=== PATIENT | female | born 1980 | race African-American/Black ===

== ENCOUNTER 2021-09-07 16:59 | Inpatient (IN) | payer MEDICAID, SELFPAY ==
[~2021-09-07 16:59] MED LIST: Iopamidol 300 61% 100 ML VIAL FS ONE; Iopamidol 300 61% 50 ML VIAL FS ONE
[2021-09-07] MEDS ORDERED: Heparin 5,000 UNITS/ML VIAL ONE (17:19)
[2021-09-07] MEDS ORDERED: Midazolam HCl 5 mg/5 ml Vial ONE (17:30)
[2021-09-07] MEDS ORDERED: Fentanyl 100 MCG/2 ML VIAL ONE (17:31)
[2021-09-07 17:33] LABS: Hemoglobin 13.4 g/dL (12.0-15.5); Mean Corpuscular HGB CONC 33.3 g/dL (32.0-36.0); Mean Corpuscular Hemoglobin 29.6 pg (27.0-33.0); Mean Corpuscular Volume 88.9 fl (81.6-98.3); Platelet Count 357 10x3/uL (150-450); RBC Distribution Width 12.9 % (11.5-14.5); Red Blood Cell (RBC) Count 4.52 10x6/uL (3.90-5.03); White Blood Cell (WBC) Count 7.3 10x3/uL (3.5-10.5)
[2021-09-07 17:58] LABS: ALT (SGPT) Less than 6 U/L (8-55); AST (SGOT) 11 U/L (5-34); Albumin 3.8 g/dL (3.5-5.0); Alkaline Phosphatase 57 U/L (40-110); Anion Gap 20 mmol/L (10-20); BUN (Urea Nitrogen) 12 mg/dL (7.0-18.7); Bilirubin, Total 0.4 mg/dL (0.2-1.2); Calc. Creatinine Clearance 0 mL/min (70-130); Carbon Dioxide 21 mmol/L (22-29); Chloride 101 mmol/L (98-107); Globulin 2.9 g/dL (2.4-3.5); Glucose 166 mg/dL (70-105); Magnesium 1.7 mg/dL (1.6-2.6); Protein, Total 6.7 g/dL (6.0-8.3); Sodium 139 mmol/L (136-145)
[2021-09-07] MEDS ORDERED: Aspirin Chewable 81 MG TAB ONE (18:00)
[2021-09-07] MEDS ORDERED: DOPamine/D5W 400 mg/250 ml PREMIX ONE (18:00)
[2021-09-07 18:02] LABS: Acetaminophen Less than 10.0 mcg/mL (10.0-30.0); Alcohol Less than 10 mg/dL (Less than 10); Salicylate Less than 8.0 mg/dL (15.0-30.0)
[2021-09-07] MEDS ORDERED: Ondansetron PF 4 MG/2 ML Vial ONE (18:04)
[2021-09-07 18:07] LABS: Potassium 2.7 mmol/L (3.5-5.1)
[2021-09-07] MEDS ORDERED: Potassium Chloride 20 MEQ in Premix Bag 1 BAG IVPB SCH (18:15)
[2021-09-07 18:17] LABS: Band 1 % (5-11); Eosinophils 5 % (0-10); Lymphocytes 47 % (21-51); Monocytes 4 % (0-10); Reactive Lymphocytes 5 % (0-10)
[2021-09-07 18:18] LABS: MDiff Complete? YES; Neutrophil 38 % (42-75); Platelet Morphology Comment Appears Adequate; RBC Morphology Normal
[2021-09-07] MEDS ORDERED: Morphine 4 MG/ML VIAL ONE (18:19)
[2021-09-07 18:21] LABS: CKMB 0.6 ng/mL (0-6.6)
[2021-09-07] MEDS ORDERED: Nitroglycerin 0.4 MG TAB (25 Tab Bottle) SL PRN (18:58)
[2021-09-07] MEDS ORDERED: Enalaprilat Dihydrate 1.25 MG/ML VIAL SLOW IVP SCH (20:00)
[2021-09-07] MEDS ORDERED: Metoprolol Tartrate 5 MG/5 ML VIAL IVP SCH (20:00)
[2021-09-07] MEDS: Morphine 2 MG/ML VIAL SLOW IVP PRN ×2 (20:04→23:23)
[2021-09-07 21:37] LABS: Prothrombin Time 10.9 sec (9.5-12.1)
[2021-09-07] MEDS ORDERED: Electrolyte Replacement Protocol FS PRN (21:40)
[2021-09-07 21:44] LABS: Troponin I 26.599 ng/mL (< 0.028)
[2021-09-07] MEDS: Metoprolol Tartrate 25 MG TAB PO SCH ×2 (21:46→21:50)
[2021-09-07] MEDS: Atorvastatin Calcium 40 MG TAB PO SCH (21:46)
[2021-09-07] MEDS ORDERED: Magnesium 2 GM/50 ML(in water) 2 GM in Premix Bag 1 BAG IVPB SCH (22:00)
[2021-09-07 22:12] VITALS: TEMP 98.1
[2021-09-07] MEDS ORDERED: Carvedilol 6.25 MG TAB PO SCH (22:15)
[2021-09-07 22:26] LABS: Anion Gap 15 mmol/L (10-20); BUN (Urea Nitrogen) 10 mg/dL (7.0-18.7); Calc. Creatinine Clearance 84 mL/min (70-130); Calcium 8.4 mg/dL (7.8-10.44); Carbon Dioxide 23 mmol/L (22-29); Chloride 104 mmol/L (98-107); Glucose 88 mg/dL (70-105); Potassium 3.6 mmol/L (3.5-5.1); Sodium 138 mmol/L (136-145)
[2021-09-07] MEDS: Potassium Chloride 20 MEQ TAB PO SCH (22:30)
[2021-09-08 00:51] LABS: Troponin I 319.074 ng/mL (< 0.028)
[2021-09-08] MEDS: Labetalol HCl 100 MG/20 ML VIAL SLOW IVP PRN ×3 (01:33→10:51)
[2021-09-08] MEDS: Potassium Chloride 20 MEQ TAB PO SCH ×2 (02:54→08:47)
[2021-09-08 03:49] LABS: Hemoglobin 13.1 g/dL (12.0-15.5); Mean Corpuscular HGB CONC 33.7 g/dL (32.0-36.0); Mean Corpuscular Hemoglobin 29.6 pg (27.0-33.0); Mean Platelet Volume 10.2 fl (7.4-10.4); Platelet Count 283 10x3/uL (150-450); RBC Distribution Width 13.1 % (11.5-14.5); Red Blood Cell (RBC) Count 4.42 10x6/uL (3.90-5.03); White Blood Cell (WBC) Count 8.8 10x3/uL (3.5-10.5)
[2021-09-08 04:20] LABS: Anion Gap 16 mmol/L (10-20); BUN (Urea Nitrogen) 11 mg/dL (7.0-18.7); Calc. Creatinine Clearance 87 mL/min (70-130); Calcium 8.4 mg/dL (7.8-10.44); Carbon Dioxide 23 mmol/L (22-29); Cardiac Risk 4.3 (Less than 4.5); Chloride 104 mmol/L (98-107); Cholesterol 211 mg/dl (< 200 Desired); Glucose 117 mg/dL (70-105); HDL Cholesterol 49 mg/dL (>60 Neg Risk); LDL Cholesterol, Calculated 143 mg/dL; Sodium 139 mmol/L (136-145); Triglycerides 94 mg/dL (Less than 150)
[2021-09-08] MEDS: Levothyroxine Sodium 75 MCG TAB PO SCH ×2 (05:52→05:58)
[2021-09-08] MEDS: TICAGRELOR 90 MG TABLET PO SCH ×2 (05:52→17:37)
[2021-09-08] MEDS ORDERED: Carvedilol 6.25 MG TAB PO SCH (08:00)
[2021-09-08] MEDS: Carvedilol 12.5 MG TAB PO SCH ×2 (08:46→17:37)
[2021-09-08] MEDS: Morphine 2 MG/ML VIAL SLOW IVP PRN (08:46)
[2021-09-08] MEDS: Aspirin 81 mg Enteric Coated Tablet PO SCH (08:47)
[2021-09-08] MEDS ORDERED: Lisinopril 2.5 MG TAB PO SCH (09:00)
[2021-09-08] MEDS ORDERED: Lisinopril 5 MG TAB PO SCH (09:00)
[2021-09-08] MEDS: Ondansetron PF 4 MG/2 ML Vial IVP PRN ×2 (09:02→15:40)
[2021-09-08 10:17] LABS: Troponin I 375.804 ng/mL (< 0.028)
[2021-09-08] MEDS ORDERED: HYDROcodone/Acetaminophen 7.5/325 mg Tablet PO PRN ×2 (11:14)
[2021-09-08] MEDS: Atorvastatin Calcium 40 MG TAB PO SCH (21:33)
[2021-09-09] MEDS: Levothyroxine Sodium 75 MCG TAB PO SCH (05:29)
[2021-09-09] MEDS: TICAGRELOR 90 MG TABLET PO SCH (05:29)
[2021-09-09 06:48] VITALS: BMI 25.6
[2021-09-09] MEDS: Potassium Chloride 20 MEQ TAB PO SCH (08:22)
[2021-09-09] MEDS: Aspirin 81 mg Enteric Coated Tablet PO SCH (08:22)
[2021-09-09 08:23] VITALS: BP 147/89
[2021-09-09] MEDS: Carvedilol 12.5 MG TAB PO SCH ×2 (08:23→17:06)
[2021-09-09] MEDS ORDERED: Lisinopril 20 MG TAB PO SCH (09:00)
[2021-09-09] MEDS ORDERED: Montelukast Sodium 10 mg Tablet PO SCH (09:45)
[2021-09-10] MEDS ORDERED: Montelukast Sodium 10 mg Tablet PO SCH (09:00)
[2021-09-10] MEDS ORDERED: Clopidogrel Bisulfate 75 MG TAB PO SCH (09:00)
== END 2021-09-09 19:45 | disposition home or self-care (01) | DRG 247 ==
LOC: CSHERS 16:59 → CSHICU 18:49 → CSHIMCU 19:27
PROVIDERS: ADMIT Specialist; ATTEND Specialist
PROC: 027035Z Dilation of Coronary Artery, One Artery with Two Drug-eluting Intraluminal Devices, Percutaneous Approach (ICD-10-PCS; principal; 2021-09-07)
PROC: 02C03ZZ Extirpation of Matter from Coronary Artery, One Artery, Percutaneous Approach (ICD-10-PCS; 2021-09-07)
PROC: 4A023N7 Measurement of Cardiac Sampling and Pressure, Left Heart, Percutaneous Approach (ICD-10-PCS; 2021-09-07)
PROC: B2111ZZ Fluoroscopy of Multiple Coronary Arteries using Low Osmolar Contrast (ICD-10-PCS; 2021-09-07)
PROC: B2151ZZ Fluoroscopy of Left Heart using Low Osmolar Contrast (ICD-10-PCS; 2021-09-07)
PROC: B241ZZ3 Ultrasonography of Multiple Coronary Arteries, Intravascular (ICD-10-PCS; 2021-09-07)
DX: I21.09 ST elevation (STEMI) myocardial infarction involving other coronary artery of anterior wall (principal); I25.10 Atherosclerotic heart disease of native coronary artery without angina pectoris; I10 Essential (primary) hypertension; I25.5 Ischemic cardiomyopathy; F12.90 Cannabis use, unspecified, uncomplicated; I95.9 Hypotension, unspecified; E03.9 Hypothyroidism, unspecified; E78.5 Hyperlipidemia, unspecified; I34.0 Nonrheumatic mitral (valve) insufficiency; Z79.890 Hormone replacement therapy; Z79.899 Other long term (current) drug therapy
CPT/HCPCS: 36415; 71045; 80048; 80053; 80061; 80307; 82553; 83735; 83880; 84484; 85025; 85027; 85347; 85610; 85730; 92941; 92978; 92979; 93005; 93010; 93306; 93458; 96374; 97139; 99152; 99153; C1753; C1769; C1874; C1887; C9606; J1265; J1644; J2250; J2270; J2405; J3010; J3475; J3480; Q9967

== ENCOUNTER 2021-09-11 09:37 | Emergency (ER) | payer SELFPAY ==
[2021-09-11] MEDS ORDERED: Ondansetron PF 4 MG/2 ML Vial ONE (12:11)
[2021-09-11] MEDS ORDERED: Morphine 4 MG/ML VIAL ONE (12:11)
[2021-09-11 12:19] LABS: #Basophils 0.1 10x3/uL (0.0-0.2); #Eosinphils 0.2 10x3/uL (0.0-0.5); #Monocytes 0.8 10x3/uL (0.0-1.1); #Neutrophils 6.8 10x3/uL (1.5-8.4); %Basophils 0.8 % (0.0-2.0); %Eosinophils 2.2 % (0.0-6.0); %Lymphocytes 16.2 % (18.0-47.0); %Monocytes 8.8 % (0.0-10.0); %Neutrophils 71.7 % (40.0-75.0); Hemoglobin 11.3 g/dL (12.0-15.5); Mean Corpuscular HGB CONC 33.6 g/dL (32.0-36.0); Mean Corpuscular Hemoglobin 29.5 pg (27.0-33.0); Mean Corpuscular Volume 87.7 fl (81.6-98.3); Mean Platelet Volume 10.6 fl (7.4-10.4); Platelet Count 215 10x3/uL (150-450); RBC Distribution Width 13.5 % (11.5-14.5); Red Blood Cell (RBC) Count 3.83 10x6/uL (3.90-5.03); White Blood Cell (WBC) Count 9.5 10x3/uL (3.5-10.5)
[2021-09-11 12:20] LABS: BHCG - Serum Negative (NEGATIVE); Pregs Control Background? CLEAR/WHITE (CLR/WHITE); Pregs Control Bar Appear? YES (CONTROL BAR)
[2021-09-11 12:29] LABS: ALT (SGPT) 12 U/L (8-55); AST (SGOT) 36 U/L (5-34); Albumin 3.2 g/dL (3.5-5.0); Alkaline Phosphatase 47 U/L (40-110); Anion Gap 11 mmol/L (10-20); BUN (Urea Nitrogen) 12 mg/dL (7.0-18.7); Bilirubin, Total 0.2 mg/dL (0.2-1.2); Calc. Creatinine Clearance 0 mL/min (70-130); Calcium 8.6 mg/dL (7.8-10.44); Carbon Dioxide 27 mmol/L (22-29); Chloride 101 mmol/L (98-107); Globulin 2.7 g/dL (2.4-3.5); Glucose 90 mg/dL (70-105); Potassium 4.1 mmol/L (3.5-5.1); Protein, Total 5.9 g/dL (6.0-8.3); Sodium 135 mmol/L (136-145)
[2021-09-11 13:26] LABS: Bilirubin Neg (Negative); Blood, Urine 10 (Negative); Clarity Clear (Clear); Glucose, Urine (Dipstick) Normal (Negative); Ketone, Urine Negative (Negative); Leukocyte 25 (Negative); Nitrite Negative (Negative); Protein, Urine (Dipstick) 15 mg/dl (Neg-Trace); Urobilinogen Normal mg/dL (Less than 2)
[2021-09-11 13:31] LABS: Bacteria/HPF Rare-Few HPF (None Seen); RBC/HPF 0-3 HPF (0-3)
[2021-09-11] MEDS ORDERED: Iopamidol 300 61% 100 ML VIAL FS ONE (14:48)
== END 2021-09-11 14:00 | disposition home or self-care (01) ==
LOC: CSHERS 09:37
DX: R10.13 Epigastric pain (principal); R10.12 Left upper quadrant pain; I10 Essential (primary) hypertension; Z79.899 Other long term (current) drug therapy; Z79.82 Long term (current) use of aspirin; Z79.02 Long term (current) use of antithrombotics/antiplatelets
CPT/HCPCS: 74177; 80053; 81003; 81015; 83690; 84703; 85025; 96374; 96375; J2270; J2405